=== PATIENT | male | born 1960 | race African-American/Black ===

== ENCOUNTER 2019-02-26 15:37 | Emergency (ER) | payer OTHER ==
--- NOTE | 2019-02-26 19:55 | ER Document Report ---
ED General - General Chief Complaint: Headache Stated Complaint: HEADACHE Time Seen by Provider: 02/26/19 19:28 [facility] Care Provider: [facility] [[facility]] - Follow up as needed Mode of Arrival: Ambulatory Information source: Patient TRAVEL OUTSIDE OF THE [place] IN LAST 30 DAYS: No - HPI Patient complains to provider of: Ear pain, cough, right arm pain, right face pain, headaches Onset: Last week Onset/Duration: Persistent Severity: Severe Pain Level: 5 Associated symptoms: denies: Chills, Fever Exacerbated by: Denies Relieved by: Denies Similar symptoms previously: No Recently seen / treated by doctor: No Notes: 59-year-old obese -[place] male 2 diabetes, hypertension, hyperlipidemia here with chief complaint sent here from the [place]. He has multiple complaints. Primarily his left ear pain. He had a bad cough for about a week. He is right arm and shoulder pain worse with movement. He is got right sided facial pain. He is got frequent headaches. Denies fevers and chills. Denies nausea and vomiting. - Related Data Allergies/Adverse Reactions: No Known Allergies Allergy (Verified 02/26/19 16:14) Past Medical History - General Information source: Patient - Social History Smoking Status: Never Smoker Frequency of alcohol use: None Drug Abuse: None Family History: Reviewed & Not Pertinent Patient has suicidal ideation: No Patient has homicidal ideation: No - Past Medical History Cardiac Medical History: Reports: Hx Hypertension - Noted on last visit Endocrine Medical History: Reports: Hx Diabetes Mellitus Type 2 Renal/ Medical History: Denies: Hx Peritoneal Dialysis Musculoskeletal Medical History: Reports Hx Arthritis - bilateral knee - Immunizations Hx Diphtheria, Pertussis, Tetanus Vaccination: Yes Review of Systems - Review of Systems Notes: Constitutional: No fevers. No chills. EENT: No eye redness. No eye pain. +ear pain. +sore throat. + right jaw pain Cardiovascular: No chest pain. No palpitations. Respiratory: +cough. No shortness of breath. No respiratory distress. Gastrointestinal: No abdominal pain. No nausea, vomiting, or diarrhea. Genitourinary: Atraumatic. No lesions. No pain. No discharge. Musculoskeletal: Atraumatic. No swelling. No deformities. Skin: No rash or lesions. Lymphatic: No swollen lymph nodes. Neurologic: No headache. No syncope. Psychiatric: No suicidal or homicidal ideation. Physical Exam - Vital signs Vitals: Temp Pulse Resp BP Pulse Ox 98.1 F 88 16 165/94 H 97 02/26/19 15:41 02/26/19 15:41 02/26/19 15:41 02/26/19 15:41 02/26/19 15:41 - Notes Notes: General: Well-developed, well-nourished. In no acute distress. Non-toxic appearing. Cardiac: Well-perfused. Regular rate and rhythm. No murmurs, rubs, or gallops. Pulmonary: No respiratory distress. No cyanosis. Bilateral lung fiels are clear to auscultation. Abdominal: Non-distended. Non-rigid. Bowels sounds are present in all four quadrants. No guarding or rebound. HEENT: Head is atraumatic. Conjunctivae not reddened. No tearing. PERRL. EOMI. Orbits atraumatic. No periorbital swelling or erythema. Oropharynx is without erythema, swelling, or exudates. Bilateral cerumen impaction. Oral exam reveals no large cavities, no abscesses, teeth in generally good repair. There is no point tenderness over any of his teeth or gums. No malocclusion. No trismus. No drooling. No dysphonia dyspnea or dysphagia Neck: Supple. No adenopathy. No meningismus. Dermatologic: Warm with good turgor. No rash. Atraumatic. Chest: Atraumatic. No chest wall tenderness to palpation. Musculoskeletal: Right upper extremity is examined. There is tenderness with range of motion at the right shoulder. No swelling. No redness. Range of motion in the elbow wrist and hand is normal. Neurovascularly intact. no muscular or joint tenderness. No paraspinal muscle tenderness. no midline spinal tenderness or step-off. Genitourinary: Examination deferred Neurologic: No gross neurologic deficits. Psychiatric: Normal mood. Course - Re-evaluation Re-evalutation: 02/26/19 22:29 Patient's labs are reassuring. Chest x-ray, CT head, CT facial bones all negative. Patient exhibits exquisite tenderness to the right anterior shoulder that brings him to tears. Wanted to make sure the patient was not having an atypical chest presentation. The patient at no time has complained of chest pain. Baseline and delta troponins are negative. EKG is normal it is very much reproducible with movement. No signs or symptoms of a DVT in that arm. The headache and the cough I think is part of a viral syndrome. We will give some steroids and some pain medication here and put him in a sling to see if that will help with shoulder pain. I am going to have [facility] tomorrow 02/26/19 22:47 - Vital Signs Vital signs: Temp Pulse Resp BP Pulse Ox 98.1 F 88 16 165/94 H 97 02/26/19 15:41 02/26/19 15:41 02/26/19 15:41 02/26/19 15:41 02/26/19 15:41 - Laboratory Result Diagrams: 02/26/19 19:50 02/26/19 19:50 Laboratory results interpreted by me: 02/26/19 02/26/19 19:50 19:50 MCV 79 L MCH 26.7 L RDW 14.4 H Lymphocytes % 45.8 H Glucose 120 H AST 67 H - EKG Interpretation by Me EKG shows normal: Sinus rhythm, [place], Intervals, QRS Complexes, ST-T Waves Discharge - Discharge Clinical Impression: Right shoulder tendinitis, Viral syndrome Headache Qualifiers: Headache type: unspecified Headache chronicity pattern: acute headache Intr actability: not intractable Qualified Code(s): R51 - Headache Cerumen impaction Qualifiers: Laterality: bilateral Qualified Code(s): H61.23 - Impacted cerumen, bilateral Condition: Good Disposition: HOME, SELF-CARE Instructions: Headache ([facility]), Oral Narcotic Medication ([facility]), Pain Medication Injection ([facility]), Viral Syndrome ([facility]), Cerumen Impaction ([facility]), Tendonitis ([facility]) Additional Instructions: If at any time your pain gets significantly worse, or you develop chest pain, or you become short of breath, you need to call the ambulance immediately and return to the hospital. I would like for you to follow-up with your primary care doctor in the morning. Please sure to remove the sling a few times a day and move your arm and shoulder so that they do not become stiff. Medrol Dosepak is to help with the inflammation of the tendons in the shoulder. Percocet as needed for pain. I also gave you a referral to an orthopedic doctor if the shoulder pain continues to bother you. Prescriptions: Carbamide Peroxide [Debrox 6.5 % Otic Drops 15 ml] 10 drop OT Q6H #1 bottle Methylprednisolone [Medrol Dosepack (4 mg/Tab) 21 Tab/Dosepak] 4 mg PO ASDIR PRN #21 tab.ds.pk PRN Reason: Oxycodone HCl/Acetaminophen [Percocet 5-325 mg Tablet] 1 - 2 tab PO Q4H PRN #15 tablet PRN Reason: [facility]errals: [facility] [[facility]] - Follow up as needed EDDIE MAY MD [ACTIVE STAFF] - Follow up as needed
[2019-02-26 20:07] LABS: ABSOLUTE EOSINOPHILS # (AUTO) 0.4 10^3/uL (0.0-0.6); ABSOLUTE LYMPHOCYTES (AUTO) 3.7 10^3/uL (0.5-4.7); ABSOLUTE MONOCYTES (AUTO) 0.5 10^3/uL (0.1-1.4); ABSOLUTE NEUT (AUTO) 3.4 10^3/uL (1.7-8.2); BASOPHILS % (AUTO) 0.6 % (0-2); EOSINOPHILS % (AUTO) 4.8 % (0-6); HEMATOCRIT 40.4 % (37.9-51.0); HEMOGLOBIN 13.7 g/dL (13.5-17.0); LYMPHOCYTES % (AUTO) 45.8 % (13-45); MEAN CORPUSCULAR HEMOGLOBIN 26.7 pg (27.0-33.4); MEAN CORPUSCULAR VOLUME 79 fl (80-97); MONOCYTES % (AUTO) 6.8 % (3-13); PLATELET COUNT 174 10^3/uL (150-450); RED BLOOD COUNT 5.14 10^6/uL (4.35-5.55); RED CELL DISTRIBUTION WIDTH 14.4 % (11.5-14.0); TOTAL CELLS COUNTED % (AUTO) 100 %
[2019-02-26 20:13] LABS: APPEARANCE,URINE CLEAR; BILIRUBIN,URINE NEGATIVE (NEGATIVE); COLOR,URINE YELLOW; GLUCOSE, URINE NEGATIVE (NEGATIVE); KETONES,URINE NEGATIVE (NEGATIVE); LEUKOCYTE ESTERASE,URINE NEGATIVE (NEGATIVE); NITRITE,URINE NEGATIVE (NEGATIVE); PROTEIN,URINE NEGATIVE (NEGATIVE); URINE SPECIFIC GRAVITY 1.018; UROBILINOGEN,URINE NEGATIVE mg/dL (<2.0)
[2019-02-26 20:28] LABS: ALANINE AMINOTRANSFERASE 70 U/L (21-72); ALBUMIN 4.2 g/dL (3.5-5.0); ALKALINE PHOSPHATASE 71 U/L (38-126); ANION GAP 10 (5-19); ASPARTATE AMINO TRANSFERASE 67 U/L (17-59); BILIRUBIN,DIRECT 0.3 mg/dL (0.0-0.4); BILIRUBIN,TOTAL 0.5 mg/dL (0.2-1.3); BLOOD UREA NITROGEN 11 mg/dL (7-20); CALCIUM 9.5 mg/dL (8.4-10.2); CARBON DIOXIDE 28 mmol/L (22-30); CHLORIDE 104 mmol/L (98-107); GLUCOSE 120 mg/dL (75-110); POTASSIUM 4.3 mmol/L (3.6-5.0); SODIUM 141.9 mmol/L (137-145); TOTAL PROTEIN 7.7 g/dL (6.3-8.2)
--- NOTE | 2019-02-26 20:28 | RADIOLOGY REPORT (SQ) ---
EXAM DESCRIPTION: XR CHEST 1 VIEW COMPLETED DATE/TME: 02/26/2019 19:28 CLINICAL HISTORY: 59 years, Male, right arm pain Compared to 08/21/2015. FINDINGS: The heart is not enlarged. No consolidation or pleural effusion. No pulmonary edema or pneumothorax. IMPRESSION: No acute disease.
--- NOTE | 2019-02-26 20:29 | RADIOLOGY REPORT (SQ) ---
EXAM DESCRIPTION: XR SHOULDER 2 OR MORE VIEWS COMPLETED DATE/TME: 02/26/2019 19:31 CLINICAL HISTORY: 59 years, Male, right shoulder pain Findings: Bony alignment is anatomic. No fracture or dislocation. Moderate acromioclavicular degenerative changes. Soft tissues are unremarkable. IMPRESSION: No fracture.
[2019-02-26 20:40] LABS: A TYPE INFLUENZA AG NEGATIVE (NEGATIVE); B INFLUENZA AG NEGATIVE (NEGATIVE)
--- NOTE | 2019-02-26 21:02 | RADIOLOGY REPORT (SQ) ---
EXAM DESCRIPTION: CT HEAD WITHOUT IV CONTRAST COMPLETED DATE/TME: 02/26/2019 19:30 CLINICAL HISTORY: 59 years, Male, headaches COMPARISON: Prior study from 06/16/2016 TECHNIQUE: Noncontrast CT of the head was performed. Coronal and sagittal reformations were created. Images stored on PACS. All CT scanners at this facility use dose modulation, iterative reconstruction, and/or weight based dosing when appropriate to reduce radiation dose to as low as reasonably achievable (ALARA). [facility]: Dose Right [facility]: CareDose [facility]: Dose Right [facility]: Teradose 4D [facility]: [employer] LIMITATIONS: None. FINDINGS: Brain parenchyma is normal in attenuation. No acute intracranial hemorrhage, mass effect, or extra-axial fluid is seen. The ventricles, sulci, and basilar cisterns are normal in size and configuration. Globes and orbits are normal. Mild rounded opacities are noted about the left maxillary antrum, indicating mucous retention cysts or inflammatory polyps. Remaining paranasal sinuses and mastoid air cells are clear. There are no depressed skull fractures. IMPRESSION: No acute intracranial abnormality. TECHNICAL DOCUMENTATION: Quality ID # [id number]: Final reports with documentation of one or more dose reduction techniques (e.g., Automated exposure control, adjustment of the mA and/or kV according to patient size, use of iterative reconstruction technique) copyright 2011 [employer]- All Rights Reserved
--- NOTE | 2019-02-26 21:17 | RADIOLOGY REPORT (SQ) ---
EXAM DESCRIPTION: CT MAXILLOFACIAL WITH IV CONTRAST COMPLETED DATE/TME: 02/26/2019 19:32 CLINICAL HISTORY: 59 years, Male, right sided facial pain This exam was performed according to our departmental dose-optimization program which includes automated exposure control, adjustment of the mA and/or kVp according to patient size and/or use of iterative reconstruction technique where applicable. FINDINGS: Mandible is intact. Lateral medical arches are intact. Nasal bones are intact. Orbits are intact. Mild mucosal thickening in the left maxillary sinus. Soft tissues surrounding the sinuses are intact. Globes are intact and not proptotic. IMPRESSION: No evidence for fracture. Mild left maxillary sinus mucosal disease. No evidence for abscess in the facial tissues.
[2019-02-26] MEDS ORDERED: OXYCODONE-ACETAMINOPHEN 5-325 MG TABLET PO ONE (21:54)
[2019-02-26] MEDS ORDERED: HYDROMORPHONE HCL INJ/PF 2 MG/ML AMPULE IV ONE (22:25)
[2019-02-26] MEDS ORDERED: DEXAMETHASONE SOD PHOS INJ 10 MG/1 ML VIAL IV ONE (22:25)
[2019-02-26] MEDS ORDERED: ONDANSETRON HCL INJ/PF 4 MG/2 ML SDV IV ONE (22:27)
[2019-02-26 22:54] VITALS: BP 144/84
--- NOTE | 2019-02-27 07:37 | EKG REPORT ---
SEVERITY:- BORDERLINE ECG - SINUS RHYTHM BORDERLINE T ABNORMALITIES, INFERIOR LEADS : Confirmed by: Hamzah Bravo MD 27-Feb-2019 07:36:16
== END 2019-02-26 22:59 | disposition home or self-care (01) ==
LOC: ER 15:37
DX: R51 Headache (principal); B34.9 Viral infection, unspecified; H61.23 Impacted cerumen, bilateral; H92.09 Otalgia, unspecified ear; M75.91 Shoulder lesion, unspecified, right shoulder; R05 Cough; M79.601 Pain in right arm; E66.9 Obesity, unspecified; E11.9 Type 2 diabetes mellitus without complications; I10 Essential (primary) hypertension; E78.5 Hyperlipidemia, unspecified
CPT/HCPCS: 93005; 99284; 96374; 96375; 36415; 87070; 87880; 85025; 80053; 81001; 84484; 87804; 71045; 73030; 70450; 70487; 93010; J1170; J2405; J1100

== ENCOUNTER 2020-08-26 04:08 | Emergency (ER) | payer OTHER ==
[2020-08-26] MEDS ORDERED: ONDANSETRON HCL INJ/PF 4 MG/2 ML SDV IV ONE (05:14)
[2020-08-26] MEDS ORDERED: MORPHINE SULFATE 10 MG/ML INJ IV ONE (05:14)
--- NOTE | 2020-08-26 05:20 | ER Document Report ---
ED General - General TRAVEL OUTSIDE OF THE [place]. IN LAST 30 DAYS: No - HPI Associated symptoms: Other - See HPI Exacerbated by: Other - See HPI Relieved by: Other - See HPI <JAMIE FRANKS IV - Last Filed: 08/26/20 06:21> <CHAD MELENDEZ - Last Filed: 08/26/20 10:01> - General Chief Complaint: Headache Stated Complaint: HEADACHE BODY PAIN Time Seen by Provider: 08/26/20 05:03 [facility] Care Provider: [facility] [[facility]] - Follow up as needed - HPI Context: This is a 60-year-old male with a history of hypertension presenting to the emergency department complaining of headache, chest pain and basically "all over body pain" that has been going on for about an hour. Patient denies history of COVID-19 infection, known exposure to Covid positive patients, known exposure to patients under investigation for Covid. Patient denies loss of sense of taste or loss of sense of smell. Patient rates his pain as a 5 on a scale of 0-5 and describes it as all over aching pain. Patient denies fever, chills, shortness of breath, nausea, vomiting, diarrhea. Patient states activity worsens his symptoms and nothing alleviates his symptoms. (JAMIE FRANKS IV) - Related Data Allergies/Adverse Reactions: No Known Allergies Allergy (Verified 08/26/20 07:18) Past Medical History - General Information source: Patient - Social History Smoking Status: Unknown if Ever Smoked Family History: Reviewed & Not Pertinent - Past Medical History Cardiac Medical History: Reports: Hx Hypertension - Noted on last visit Endocrine Medical History: Reports: Hx Diabetes Mellitus Type 2 Renal/ Medical History: Denies: Hx Peritoneal Dialysis Musculoskeletal Medical History: Reports Hx Arthritis - bilateral knee - Immunizations Hx Diphtheria, Pertussis, Tetanus Vaccination: Yes <JAMIE FRANKS IV - Last Filed: 08/26/20 06:21> Review of Systems - Review of Systems Constitutional: No symptoms reported EENT: No symptoms reported Cardiovascular: Chest pain Respiratory: No symptoms reported Gastrointestinal: No symptoms reported Genitourinary: No symptoms reported Male Genitourinary: No symptoms reported Musculoskeletal: Muscle pain Skin: No symptoms reported Hematologic/Lymphatic: No symptoms reported Neurological/Psychological: Headaches -: Yes All other systems reviewed and negative <JAMIE FRANKS IV - Last Filed: 08/26/20 06:21> Physical Exam <JAMIE FRANKS IV - Last Filed: 08/26/20 06:21> - Vital signs Vitals: Temp Pulse Resp BP Pulse Ox 98.0 F 78 20 170/89 H 96 08/26/20 04:28 08/26/20 04:28 08/26/20 04:28 08/26/20 04:28 08/26/20 04:28 - Notes Notes: CONSTITUTIONAL [Vital signs reviewed, Patient appears comfortable, Alert and oriented X 3, Normal stature.] HEAD [Atraumatic, Normocephalic.] EYES [Eyes are normal to inspection, No discharge from eyes, Extraocular muscles intact, Sclera are normal, Conjunctiva are normal.] ENT Nose examination normal, Posterior pharynx normal, Mouth normal to inspection.] NECK [Normal ROM, No jugular venous distention, No meningeal signs, no carotid bruit.] RESPIRATORY CHEST [Chest is nontender, Breath sounds normal, No respiratory distress.] CARDIOVASCULAR [RRR, No murmurs, Normal S1 S2, No rub, No gallop.] ABDOMEN [Abdomen is nontender, No pulsatile masses, No other masses, Bowel sounds normal, No distension, No peritoneal signs, No hernias.] BACK [There is no CVA Tenderness, There is no tenderness to palpation, Normal inspection.] UPPER EXTREMITY [Inspection normal, No cyanosis, No clubbing, No edema, 2+ radial pulses.] LOWER EXTREMITY [Inspection normal, No cyanosis, No clubbing, No edema, No calf tenderness, 2+ femoral pulses.] NEURO [No focal motor deficits, No focal sensory deficits, Speech normal.] SKIN [Skin is warm, Skin is dry, Skin is normal color.] PSYCHIATRIC [Normal affect. ] (JAMIE FRANKS IV) Course - Laboratory Result Diagrams: 08/26/20 04:50 08/26/20 04:50 <JAMIE FRANKS IV - Last Filed: 08/26/20 06:21> - Laboratory Result Diagrams: 08/26/20 04:50 08/26/20 04:50 - Diagnostic Test Radiology reviewed: Reports reviewed <CHAD MELENDEZ - Last Filed: 08/26/20 10:01> - Re-evaluation Re-evalutation: 08/26/20 09:56 Care of this patient was turned over to me. In short he presented with pain all over, chest pain, headache. He had a CT scan of the head pending, chest x-ray pending, repeat troponin pending. These are all unremarkable. Patient has been stable. Patient will be discharged as per Dr. Franks' instructions. 08/26/20 10:00 I was notified by nursing that the patient was complaining of some right arm pain. I went into evaluate the patient. He hurts when he moves his arm. He has muscle tenderness. He is neurovascularly intact. He denies any other pain at this time. He is not no chest pain, no shortness of breath. He is strongly encouraged to follow-up with primary care. He states he is filling out paperwork [facility]. Otherwise he is stable. He is discharged with the paperwork as printed by Dr. Franks. (CHAD MELENDEZ) - Vital Signs Vital signs: Temp Pulse Resp BP Pulse Ox 97.9 F 78 14 151/89 H 97 08/26/20 08:15 08/26/20 04:28 08/26/20 09:01 08/26/20 09:01 08/26/20 09:01 - Laboratory Laboratory results interpreted by me: 08/26/20 08/26/20 04:50 04:50 Hgb 13.3 L MCV 78 L MCH 26.4 L RDW 14.6 H Lymph % (Auto) 48.2 H Glucose 185 H ALT 54 H - Diagnostic Test Radiology results interpreted by me: 08/26/20 09:57 Chest X-Ray 08/26/20 00:00 IMPRESSION: No acute findings visualized in the chest. Head CT 08/26/20 05:41 IMPRESSION: No acute intracranial abnormality. (CHAD MELENDEZ) - EKG Interpretation by Me Additional EKG results interpreted by me: 08/26/20 05:24 EKG obtained on 08/26 2020 at 0416 hrs. was interpreted by this MD. Findings: Normal sinus rhythm, rate 81, left axis deviation, RI interval is within normal limits, P waves proceed QRS complexes, QRS complexes appear narrow, QTC is 465, there are no obvious patterns of ST segment elevation, depression or reciprocal changes seen to suggest acute myocardial ischemia or infarction. Impression: Normal sinus rhythm with nonspecific ST segments. (JAMIE FRANKS IV) Discharge <JAMIE FRANKS IV - Last Filed: 08/26/20 06:21> <CHAD MELENDEZ M - Last Filed: 08/26/20 10:01> - Discharge Clinical Impression: Myalgia Chest pain Qualifiers: Chest pain type: unspecified Qualified Code(s): R07.9 - Chest pain, unspecified Headache Qualifiers: Headache type: unspecified Headache chronicity pattern: unspecified pattern In tractability: not intractable Qualified Code(s): R51.9 - Headache, unspecified Condition: Stable Disposition: HOME, SELF-CARE Additional Instructions: Return to the Emergency Department without delay if any worse. HOME CARE INSTRUCTIONS & INFORMATION: Thank you for choosing us for your medical needs. We hope you're satisfied with the care you received. After you leave, you must properly care for your problem and, at the same time, observe its progress. Any condition can change. Some illnesses can change rapidly over hours or days. If your condition worsens, return to the Emergency Department or see your physician promptly. ABOUT YOUR X-RAYS AND EKG'S: If you had an EKG or X-rays taken, they have been read by the Emergency Physician. The X-rays and EKG's will also be read by a Radiologist or Food Server within 24 hours. If discrepancies are noted, you will be notified by telephone. Please be certain the ED has a correct telephone number & address where you can be reached. Also, realize that some fractures or abnormalities do not show up on initial X-rays. If your symptoms continue, see your physician. ABOUT YOUR LABORATORY TEST: If you had laboratory tests, the results have been reviewed by the Emergency Physician. Some test results (for example cultures) may not be available for several days. You will be contacted if any test result shows you need additional treatment. Please be certain the ED has a correct telephone number and address where you can be reached. ABOUT YOUR MEDICATIONS: You will receive instructions on how to take your me dicine on the prescription label you receive. Additional information may be provided by the Pharmacy. If you have questions afterwards, call the ED for clarification or further instructions. Some prescribed medications may cause drowsiness. Do not perform tasks such as driving a car or operating machinery without consulting your Pharmacist. If you feel you need a refill of pain medication, your condition will need re-evaluation. Please do not call for a refill of any medication. ABOUT YOUR SIGNATURE: Signature of this document acknowledges to followin. Understanding that you received emergency treatment and that you may be released before al medical problems are known or treated. Please be certain the ED has a correct phone number & address where you can be reached. 2. Acknowledgement that you will arrange for follow-up care as recommended. 3. Authorization for the Emergency Physician to provide information to your follow-up Physician in order to maximize your care. AT ANY TIME, IF YOUR SYMPTOMS CHANGE SIGNIFICANTLY OR WORSEN OR YOU DEVELOP NEW SYMPTOMS, RETURN TO THE EMERGENCY DEPARTMENT IMMEDIATELY FOR RE-EVALUATION. OUR GOAL IS TO PROVIDE EXCELLENT MEDICAL CARE! WE HOPE THAT WE HAVE MET YOUR EXPECTATIONS DURING YOUR EMERGENCY DEPARTMENT VISIT AND THAT YOU FEEL YOU HAVE RECEIVED EXCELLENT CARE! Referrals: [facility] [[facility]] - Follow up as needed
[2020-08-26 05:29] LABS: ABSOLUTE EOSINOPHILS # (AUTO) 0.2 10^3/uL (0.0-0.6); ABSOLUTE LYMPHOCYTES (AUTO) 2.9 10^3/uL (0.5-4.7); ABSOLUTE MONOCYTES (AUTO) 0.4 10^3/uL (0.1-1.4); ABSOLUTE NEUT (AUTO) 2.5 10^3/uL (1.7-8.2); BASOPHILS % (AUTO) 0.3 % (0-2); EOSINOPHILS % (AUTO) 2.7 % (0-6); HEMATOCRIT 39.4 % (37.9-51.0); HEMOGLOBIN 13.3 g/dL (13.5-17.0); LYMPHOCYTES % (AUTO) 48.2 % (13-45); MEAN CORPUSCULAR HEMOGLOBIN 26.4 pg (27.0-33.4); MEAN CORPUSCULAR HGB CONC 33.8 g/dL (32.0-36.0); MEAN CORPUSCULAR VOLUME 78 fl (80-97); MONOCYTES % (AUTO) 6.4 % (3-13); PLATELET COUNT 153 10^3/uL (150-450); RED BLOOD COUNT 5.06 10^6/uL (4.35-5.55); RED CELL DISTRIBUTION WIDTH 14.6 % (11.5-14.0); SEGMENTED NEUTROPHILS % (AUTO) 42.4 % (42-78); TOTAL CELLS COUNTED % (AUTO) 100 %
[2020-08-26 05:33] LABS: ALBUMIN 4.5 g/dL (3.5-5.0); ALKALINE PHOSPHATASE 74 U/L (38-126); ANION GAP 10 (5-19); ASPARTATE AMINO TRANSFERASE 45 U/L (17-59); BILIRUBIN,DIRECT 0.2 mg/dL (0.0-0.4); BILIRUBIN,TOTAL 0.6 mg/dL (0.2-1.3); BLOOD UREA NITROGEN 10 mg/dL (7-20); CALCIUM 9.7 mg/dL (8.4-10.2); CARBON DIOXIDE 30 mmol/L (22-30); CHLORIDE 100 mmol/L (98-107); CREATINE KINASE 128 U/L (55-170); GLUCOSE 185 mg/dL (75-110); POTASSIUM 4.2 mmol/L (3.6-5.0); TOTAL PROTEIN 7.4 g/dL (6.3-8.2)
[2020-08-26 05:42] LABS: APPEARANCE,URINE CLEAR; BILIRUBIN,URINE NEGATIVE (NEGATIVE); COLOR,URINE YELLOW; GLUCOSE, URINE NEGATIVE (NEGATIVE); KETONES,URINE NEGATIVE (NEGATIVE); LEUKOCYTE ESTERASE,URINE NEGATIVE (NEGATIVE); NITRITE,URINE NEGATIVE (NEGATIVE); PROTEIN,URINE NEGATIVE (NEGATIVE); URINE SPECIFIC GRAVITY 1.018; UROBILINOGEN,URINE NEGATIVE mg/dL (<2.0)
[2020-08-26 05:44] LABS: CREATINE KINASE MB 0.51 ng/mL (<4.55)
[2020-08-26 05:49] LABS: TROPONIN I < 0.012 ng/mL
--- NOTE | 2020-08-26 06:57 | RADIOLOGY REPORT (SQ) ---
COMPLETED DATE/TME: 08/26/2020 05:41 EXAM: CT head without contrast. INDICATION: Headache. TECHNIQUE: Contiguous axial CT images of the brain. Intravenous contrast: Absent. DLP 1017 mGy-cm. This exam was performed according to our departmental dose-optimization program, which includes automated exposure control, adjustment of the mA and/or kV according to patient size and/or use of iterative reconstruction technique. COMPARISON: 02/26/2019. FINDINGS: Subcutaneous: Unremarkable. No acute intracranial hemorrhage. No midline shift. No mass effect. Ventricles: No hydrocephalus. [place]-white differentiation preserved. Paranasal sinuses/mastoid air cells: Mucosal thickening with mucus retention cysts in the maxillary sinuses. No air-fluid levels. Bones/orbits: Visualized portions are unremarkable. IMPRESSION: No acute intracranial abnormality.
--- NOTE | 2020-08-26 07:05 | RADIOLOGY REPORT (SQ) ---
EXAM: XR Chest, 2 Views EXAM DATE/TIME: 08/26/2020 5:41 AM CLINICAL HISTORY: The patient is 60 years old and is Male; chest pain TECHNIQUE: Frontal and lateral views of the chest. COMPARISON: Chest radiograph from 02/26/2019 FINDINGS: LUNGS: Unremarkable. No consolidation. PLEURAL SPACE: Unremarkable. No pneumothorax. HEART: No significant enlargement of the cardiac silhouette. MEDIASTINUM: Unremarkable. BONES/JOINTS: No acute osseous findings. IMPRESSION: No acute findings visualized in the chest.
[2020-08-26 10:05] VITALS: BP 158/84
== END 2020-08-26 10:05 | disposition home or self-care (01) ==
LOC: ER 04:08
DX: R51.9 Headache, unspecified (principal); M79.10 Myalgia, unspecified site; R07.9 Chest pain, unspecified; I10 Essential (primary) hypertension; E11.9 Type 2 diabetes mellitus without complications
CPT/HCPCS: 99285; 96374; 96375; 36415; 87086; 82553; 82550; 85025; 80053; 81001; 84484; 71046; 70450; J2270; J2405

== ENCOUNTER 2020-09-02 13:25 | Emergency (ER) | payer OTHER ==
[2020-09-02 14:37] LABS: ALBUMIN 3.8 g/dL (3.5-5.0); ALKALINE PHOSPHATASE 71 U/L (38-126); ANION GAP 8 (5-19); ASPARTATE AMINO TRANSFERASE 39 U/L (17-59); BILIRUBIN,DIRECT 0.2 mg/dL (0.0-0.4); BILIRUBIN,TOTAL 0.5 mg/dL (0.2-1.3); BLOOD UREA NITROGEN 10 mg/dL (7-20); CARBON DIOXIDE 27 mmol/L (22-30); CHLORIDE 103 mmol/L (98-107); GLUCOSE 249 mg/dL (75-110); TOTAL PROTEIN 6.4 g/dL (6.3-8.2)
[2020-09-02 14:38] LABS: ALCOHOL < 10 mg/dL (NONE DETECTED)
[2020-09-02 14:40] LABS: ABSOLUTE EOSINOPHILS # (AUTO) 0.1 10^3/uL (0.0-0.6); ABSOLUTE MONOCYTES (AUTO) 0.4 10^3/uL (0.1-1.4); ABSOLUTE NEUT (AUTO) 3.5 10^3/uL (1.7-8.2); BASOPHILS % (AUTO) 0.3 % (0-2); EOSINOPHILS % (AUTO) 1.6 % (0-6); HEMATOCRIT 43.1 % (37.9-51.0); HEMOGLOBIN 14.9 g/dL (13.5-17.0); LYMPHOCYTES % (AUTO) 42.5 % (13-45); MEAN CORPUSCULAR HEMOGLOBIN 27.1 pg (27.0-33.4); MEAN CORPUSCULAR HGB CONC 34.5 g/dL (32.0-36.0); MEAN CORPUSCULAR VOLUME 78 fl (80-97); MONOCYTES % (AUTO) 5.8 % (3-13); PLATELET COUNT 156 10^3/uL (150-450); RED CELL DISTRIBUTION WIDTH 14.6 % (11.5-14.0); SEGMENTED NEUTROPHILS % (AUTO) 49.8 % (42-78); TOTAL CELLS COUNTED % (AUTO) 100 %
--- NOTE | 2020-09-02 14:44 | RADIOLOGY REPORT (SQ) ---
EXAM DESCRIPTION: CHEST SINGLE VIEW IMAGES COMPLETED DATE/TIME: 09/02/2020 2:34 pm REASON FOR STUDY: AMS COMPARISON: 08/26/2020 EXAM PARAMETERS: NUMBER OF VIEWS: One view. TECHNIQUE: Single frontal radiographic view of the chest acquired. RADIATION DOSE: NA LIMITATIONS: None. FINDINGS: LUNGS AND PLEURA: No opacities, masses or pneumothorax. No pleural effusion. MEDIASTINUM AND HILAR STRUCTURES: No masses. Contour normal. HEART AND VASCULAR STRUCTURES: Heart normal in size. Normal vasculature. BONES: No acute findings. HARDWARE: None in the chest. OTHER: No other significant finding. IMPRESSION: NO ACUTE RADIOGRAPHIC FINDING IN THE CHEST. TECHNICAL DOCUMENTATION: JOB ID: [id number] 2010 [employer]- All Rights Reserved Reading location - IP/workstation name: [email or web address]
--- NOTE | 2020-09-02 15:24 | ER Document Report ---
ED General - General Chief Complaint: Altered Mental Status Stated Complaint: SYNCOPE Time Seen by Provider: 09/02/20 13:50 Primary Care Provider: MELISSA MEJIAS [Primary Care Provider] - Follow up as needed TRAVEL OUTSIDE OF THE [place] IN LAST 30 DAYS: No - HPI Notes: Chief complaint: Syncope and altered mental status History of present illness: 60-year-old male followed by the CT taking no long- term medications was seen here about 1 week ago with some vague complaints of headache and myalgias and felt to probably have a viral syndrome at that time and discharged in emergency department. His work-up during that visit was relatively extensive including a head CT CBC and chemistry profile. He was noted to have mild elevation of serum glucose although at that time this was a ttributed to probable stress hyperglycemia. He is not known to be diabetic. He was apparently in a local store several hours ago when he said he suddenly felt like he was having difficulty breathing. He sat down and according to bystanders became unresponsive. There is no clear-cut description of tonic- clonic activity but he was difficult to arouse for a number of minutes and when EMS arrived he was moderately confused. This is gradually improved since then he is back to baseline status now with no very specific complaints at this time. Patient is a non-smoker. She denies use of drugs or alcohol. 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 - Related Data Allergies/Adverse Reactions: No Known Allergies Allergy (Verified 08/26/20 07:18) Past Medical History - General Information source: Patient - Social History Smoking Status: Never Smoker Frequency of alcohol use: None Drug Abuse: None Family History: Reviewed & Not Pertinent - Past Medical History Cardiac Medical History: Reports: Hx Hypertension - Noted on last visit Endocrine Medical History: Reports: Hx Diabetes Mellitus Type 2 Renal/ Medical History: Denies: Hx Peritoneal Dialysis Musculoskeletal Medical History: Reports Hx Arthritis - bilateral knee - Immunizations Hx Diphtheria, Pertussis, Tetanus Vaccination: Yes Review of Systems - Review of Systems Notes: Constitutional: Negative for fever. HENT: Negative for sore throat. Eyes: Negative for visual changes. Cardiovascular: Negative for chest pain. Respiratory: As per HPI. Gastrointestinal: Negative for abdominal pain, vomiting or diarrhea. Genitourinary: Negative for dysuria. Musculoskeletal: Negative for back pain. Skin: Negative for rash. Neurological: As per HPI. 10 point ROS negative except as marked above and in HPI. Physical Exam - Vital signs Vitals: BP 134/93 H 09/02/20 10:25 - Notes Notes: GENERAL: Obese male approximately stated age appearing in no acute distress. SKIN: Good turgor no rashes. HEAD: Normocephalic atraumatic. EYES: PERRLA. EOMI. Conjunctivae and sclerae clear. EARS: CANALS AND TMS CLEAR. NOSE: CLEAR. MOUTH: Moist mucosa. Good dentition. No stridor or edema. No drooling. NECK: Supple. No masses or thyromegaly. No adenopathy. Carotids 2+ without bruits. No JVD. BACK: Symmetrical without tenderness. CHEST: Respirations unlabored. Breath sounds clear and symmetrical. HEART: Regular rhythm. No murmur gallop or rub. ABDOMEN: Obese soft nontender without masses, organomegaly or rebound. Bowel sounds normally active. No bruits. GENITALIA: Deferred. EXTREMITIES: No edema. No calf tenderness. Cap refill less than 1.5 seconds. Dorsalis pedis and posterior tibial pulses 3+ and symmetrical. NEUROLOGICAL: GCS 15. Alert and oriented x3. Fluent speech. Cranial nerves II through XII intact. Sensorimotor and cerebellar normal. Normal tone. PSYCHIATRIC: Appropriate affect. Course - Re-evaluation Re-evalutation: 09/02/20 18:05 Patient has diabetes mellitus type 2 that is not well controlled. He is not in DKA. He has some sort of an unexplained syncopal episode and transient altered mental status this afternoon. My suspicion is that he may have had a seizure. He has had a recent normal noncontrast head CT. From his elevation of blood sugars labs were otherwise unremarkable here. There were no significant dysrhythmias on his EKG no acute ST changes. D-dimer was normal. His lactate was not elevated. Arterial blood gas was normal. Chest x-ray was normal. I think this man needs further outpatient work-up by neurologist and I will make an appropriate referral for him. I discussed this with him and his . He understands importance of not driving until he has been further evaluated by neurologist. Findings, clinical impression and plan of treatment have been discussed with patient/family. Understanding of current findings and recommendations has been acknowledged by them and there is agreement regarding disposition and follow-up. - Vital Signs Vital signs: Temp Pulse Resp BP Pulse Ox 18 133/76 H 98 09/02/20 17:01 09/02/20 17:01 09/02/20 17:01 - Laboratory Result Diagrams: 09/02/20 13:42 09/02/20 13:42 Laboratory results interpreted by me: 09/02/20 09/02/20 09/02/20 13:42 13:42 14:16 MCV 78 L RDW 14.6 H ABG HCO3 ABG Total CO2 Glucose 249 H Ammonia < 8.7 L Urine Glucose (UA) 09/02/20 09/02/20 15:29 16:35 MCV RDW ABG HCO3 26.9 H ABG Total CO2 28.2 H Glucose Ammonia Urine Glucose (UA) >=500 H - EKG Interpretation by Me Additional EKG results interpreted by me: 09/02/20 18:15 Twelve-lead EKG reviewed by me contemporaneously: 1333 hrs. Indication for study: Syncope Rhythm: Normal sinus Rate: 94 Intervals: Normal QRS axis: [address]/T wave changes: None Comparison with prior tracing: None provided Interpretation: Borderline left axis deviation Discharge - Discharge Clinical Impression: Transient altered mental status, Diabetes mellitus type 2 in obese Syncope Qualifiers: Syncope type: unspecified Qualified Code(s): R55 - Syncope and collapse Condition: Stable Disposition: HOME, SELF-CARE Additional Instructions: You have had an unexplained fainting episode possibly due to a seizure. It is important that you not drive a car and not return to work until you have been further evaluated by neurology specialist. We will provide a physician/clinic referral for you. You are also receiving a doctor's note for work for the next 3 days. Additionally we note that your diabetes is not well controlled. [facility] your [facility]. Return here as needed for new or worsening symptoms: Pain that is worsening or unimproved Uncontrolled vomiting High fever or shaking chills Overall worsening Referrals: [facility] [Primary Care Provider] - Follow up as needed GABRIELLE PERSAUD MD [TELEMEDICINE] - Follow up as needed
[2020-09-02 16:14] LABS: APPEARANCE,URINE CLEAR; BILIRUBIN,URINE NEGATIVE (NEGATIVE); COLOR,URINE YELLOW; GLUCOSE, URINE >=500 mg/dL (NEGATIVE); KETONES,URINE NEGATIVE (NEGATIVE); LEUKOCYTE ESTERASE,URINE NEGATIVE (NEGATIVE); NITRITE,URINE NEGATIVE (NEGATIVE); PROTEIN,URINE NEGATIVE (NEGATIVE); URINE SPECIFIC GRAVITY 1.007; UROBILINOGEN,URINE NEGATIVE mg/dL (<2.0)
[2020-09-02 16:22] LABS: URINE AMPHETAMINES SCREEN NEGATIVE; URINE BARBITURATES SCREEN NEGATIVE; URINE BENZODIAZEPINES SCREEN NEGATIVE; URINE COCAINE SCREEN NEGATIVE; URINE MARIJUANA (THC) SCREEN NEGATIVE; URINE METHADONE SCREEN NEGATIVE; URINE PHENCYCLIDINE SCREEN NEGATIVE
[2020-09-02 17:36] LABS: ARTERIAL BLOOD H2CO3 1.29 mmol/L (1.05-1.35); ARTERIAL BLOOD HCO3 26.9 mmol/L (20-24); ARTERIAL BLOOD O2 SATURATION 96.8 % (94-98); ARTERIAL BLOOD PCO2 42.9 mmHg (35-45); ARTERIAL BLOOD PH 7.42 (7.35-7.45); ARTERIAL BLOOD PO2 88.2 mmHg (80-100); ARTERIAL BLOOD TOTAL CO2 28.2 mmol/L (23-27)
[2020-09-02 17:37] LABS: ARTERIAL BLOOD FIO2 21%
--- NOTE | 2020-09-02 18:07 | EKG REPORT ---
SEVERITY:- OTHERWISE NORMAL ECG - SINUS RHYTHM BORDERLINE LEFT AXIS DEVIATION : Confirmed by: Hamzah Bravo MD 02-Sep-2020 18:06:33
[2020-09-02 18:44] VITALS: BP 147/96
== END 2020-09-02 18:30 | disposition home or self-care (01) ==
LOC: ER 13:25
DX: R55 Syncope and collapse (principal); E11.65 Type 2 diabetes mellitus with hyperglycemia; R41.0 Disorientation, unspecified; E66.9 Obesity, unspecified; I10 Essential (primary) hypertension
CPT/HCPCS: 36415; 71045; 80053; 80307; 81001; 82140; 82803; 83605; 84484; 85025; 85379; 93005; 93010; 99285

== ENCOUNTER 2020-10-29 12:54 | Emergency (ER) | payer OTHER ==
[2020-10-29 14:31] LABS: ABSOLUTE BASOPHILS # (AUTO) 0.1 10^3/uL (0.0-0.2); ABSOLUTE EOSINOPHILS # (AUTO) 0.1 10^3/uL (0.0-0.6); ABSOLUTE LYMPHOCYTES (AUTO) 2.6 10^3/uL (0.5-4.7); ABSOLUTE MONOCYTES (AUTO) 0.5 10^3/uL (0.1-1.4); ABSOLUTE NEUT (AUTO) 4.9 10^3/uL (1.7-8.2); BASOPHILS % (AUTO) 1.1 % (0-2); EOSINOPHILS % (AUTO) 1.3 % (0-6); HEMATOCRIT 46.8 % (37.9-51.0); HEMOGLOBIN 15.3 g/dL (13.5-17.0); LYMPHOCYTES % (AUTO) 32.1 % (13-45); MEAN CORPUSCULAR HEMOGLOBIN 26.2 pg (27.0-33.4); MEAN CORPUSCULAR HGB CONC 32.6 g/dL (32.0-36.0); MEAN CORPUSCULAR VOLUME 80 fl (80-97); PLATELET COUNT 173 10^3/uL (150-450); RED BLOOD COUNT 5.85 10^6/uL (4.35-5.55); RED CELL DISTRIBUTION WIDTH 14.8 % (11.5-14.0); SEGMENTED NEUTROPHILS % (AUTO) 59.5 % (42-78); TOTAL CELLS COUNTED % (AUTO) 100 %; WHITE BLOOD COUNT 8.2 10^3/uL (4.0-10.5)
[2020-10-29 14:52] LABS: APPEARANCE,URINE CLEAR; BILIRUBIN,URINE NEGATIVE (NEGATIVE); COLOR,URINE YELLOW; GLUCOSE, URINE >=500 mg/dL (NEGATIVE); KETONES,URINE NEGATIVE (NEGATIVE); LEUKOCYTE ESTERASE,URINE NEGATIVE (NEGATIVE); NITRITE,URINE NEGATIVE (NEGATIVE); PROTEIN,URINE NEGATIVE (NEGATIVE); URINE SPECIFIC GRAVITY 1.009; UROBILINOGEN,URINE NEGATIVE mg/dL (<2.0)
[2020-10-29 16:07] LABS: ALBUMIN 3.9 g/dL (3.5-5.0); ALKALINE PHOSPHATASE 56 U/L (38-126); ANION GAP 8 (5-19); ASPARTATE AMINO TRANSFERASE 49 U/L (17-59); BILIRUBIN,DIRECT 0.2 mg/dL (0.0-0.4); BILIRUBIN,TOTAL 0.7 mg/dL (0.2-1.3); BLOOD UREA NITROGEN 9 mg/dL (7-20); CALCIUM 9.1 mg/dL (8.4-10.2); CARBON DIOXIDE 27 mmol/L (22-30); CHLORIDE 99 mmol/L (98-107); CREATINE KINASE 104 U/L (55-170); GLUCOSE 272 mg/dL (75-110); POTASSIUM 4.6 mmol/L (3.6-5.0); TOTAL PROTEIN 6.8 g/dL (6.3-8.2)
[2020-10-29 16:25] LABS: CREATINE KINASE MB 0.27 ng/mL (<4.55)
--- NOTE | 2020-10-29 16:25 | ER Document Report ---
ED Syncope and Near Syncope - General Chief Complaint: Syncope Stated Complaint: POSSIBLE SYNCOPE EPISODE Time Seen by Provider: 10/29/20 15:08 Primary Care Provider: ROSA KITCHEN MD [Primary Care Provider] - Follow up as needed Mode of Arrival: Medic Information source: Patient Notes: 60-year-old diabetic male who presents to the emergency department with a histor y of became poorly responsive this morning. He states that he thinks that the episode lasted about 10 minutes. He was given orange juice by his and did come around. He also complained of some chest discomfort/pain. Cardiac cath was performed 2 months ago with no significant CAD. Continues to have a substernal chest pain that he rates a 7/10. He denies radiation of the pain or associated palpitations or shortness of breath. TRAVEL OUTSIDE OF THE [place] IN LAST 30 DAYS: No - Related Data Allergies/Adverse Reactions: No Known Allergies Allergy (Verified 08/26/20 07:18) Home Medications: Glipizide, Ibuprofen, Acetaminophen, Pioglitazone, Metformin, Losartan, HCTZ, Tramadol, Atorvastatin, Omperazole, Trazodone, Sertraline Past Medical History - Social History Smoking Status: Never Smoker Frequency of alcohol use: None Drug Abuse: None Family History: Reviewed & Not Pertinent - Past Medical History Cardiac Medical History: Reports: Hx Hypercholesterolemia, Hx Hypertension - Noted on last visit Endocrine Medical History: Reports: Hx Diabetes Mellitus Type 2 Renal/ Medical History: Denies: Hx Peritoneal Dialysis Musculoskeletal Medical History: Reports Hx Arthritis - bilateral knee - Immunizations Hx Diphtheria, Pertussis, Tetanus Vaccination: Yes Review of Systems - Review of Systems Notes: Constitutional: Negative for fever. HENT: Negative for sore throat. Eyes: Negative for visual changes. Cardiovascular: + Chest pain Respiratory: Negative for shortness of breath. Gastrointestinal: Negative for abdominal pain, vomiting or diarrhea. Genitourinary: Negative for dysuria. Musculoskeletal: Negative for back pain. Skin: Negative for rash. Neurological: The HPI 10 point ROS negative except as marked above and in HPI. Physical Exam - Vital signs Vitals: Temp Pulse Resp BP Pulse Ox 97.3 F 101 H 16 118/71 97 10/29/20 13:12 10/29/20 13:12 10/29/20 13:12 10/29/20 13:12 10/29/20 13:12 - Notes Notes: PHYSICAL EXAMINATION: Physical Exam: General: Well-nourished well-developed 60-year-old man in no acute distress HEENT: NC/AT, pupils equal round and reactive to light, MM moist,nares clear, oropharynx clear, airway patent Neck: supple, no adenopathy, no masses. Good range of motion Lungs: clear, no wheezing, no rales no rhonchi CVS: Regular rate and rhythm no murmur gallop or rub Abdomen: Soft, active, nontender, no masses, no hepatosplenomegaly Ext: No edema, clubbing or cyanosis. Neuro: Alert and responsive, moving all 4 extremities on command, cranial nerves intact, no focal findings Skin: Intact no open lesions, no rash Course - Re-evaluation Re-evalutation: 10/29/20 19:08 Patient has feeling much better and labs or unremarkable for significant abnormality. Blood sugar is somewhat elevated however he drank a large quantity of orange juice prior to coming into the emergency department. EKG does not show any interval changes from his previous EKG in August and initial troponin is negative. I have explained to the patient that his episode may have been hypoglycemia however, is not possible to figure it out based on where things are at this point. He is being discharged home to follow-up as an outpatient. I have asked him to see his primary care doctor regarding his blood sugar and also possible adjustments in his medication. Patient and his are in agreement with that plan. - Vital Signs Vital signs: Temp Pulse Resp BP Pulse Ox 98.1 F 101 H 20 122/74 97 10/29/20 19:00 10/29/20 13:12 10/29/20 19:00 10/29/20 19:00 10/29/20 19:00 - Laboratory Results Result Diagrams: 10/29/20 13:15 10/29/20 15:21 Laboratory Results Interpreted: 10/29/20 10/29/20 10/29/20 13:15 13:15 15:21 RBC 5.85 H MCH 26.2 L RDW 14.8 H Sodium 134.2 L Glucose 272 H Urine Glucose (UA) >=500 H 10/29/20 16:24 I have reviewed laboratory data and used this information for the treatment decisions regarding the patient. Critical Laboratory Results Reviewed: No Critical Results - Radiology Results Critical Radiology Results Reviewed: No Critical Results - EKG Interpretation by Me Rate: Normal - EKG interpreted by Dr. Hawthorne: Normal sinus rhythm, rate 89, DC interval 172 ms QT interval 434 ms, normal axis, T wave inversion in III, no ischemic findings, compared to EKG dated 09/02/20, no significant interval patricio ges.. Interpretation: Abnormal EKG Discharge - Discharge Clinical Impression: Syncope Qualifiers: Syncope type: unspecified Qualified Code(s): R55 - Syncope and collapse Diabetes mellitus Qualifiers: Diabetes mellitus type: type 2 Diabetes mellitus terminal gauger supervisor insulin use: without intermediate use Diabetes mellitus complication status: without complication Qualified Code(s): E11.9 - Type 2 diabetes mellitus without complications Condition: Good Disposition: HOME, SELF-CARE Instructions: Near Syncopal Episode ([facility]) Additional Instructions: You were seen in the emergency department today with an episode of decreased responsiveness which sounds like possible low blood sugar episode. Please eat when you take your medication because it will sometimes cause the blood sugar to drop. The episode you had today sounds similar to the episode in August. Please contact your primary care doctor and give him a background of the 2 episodes. There may be reasons to adjust your medication. If your symptoms are recurrent or if you have other concerns you may return to the emergency department for further evaluation and treatment HOME CARE INSTRUCTIONS & INFORMATION: Thank you for choosing us for your medical needs. We hope you're satisfied with the care you received. After you leave, you must properly care for your problem and, at the same time, observe its progress. Any condition can change. Some illnesses can change rapidly over hours or days. If your condition worsens, return to the Emergency Department or see your physician promptly. ABOUT YOUR X-RAYS AND EKG'S: If you had an EKG or X-rays taken, they have been read by the Emergency Physician. The X-rays and EKG's will also be read by a Radiologist or Eligibility Specialist within 24 hours. If discrepancies are noted, you will be notified by telephone. Please be certain the ED has a correct telephone number & address where you can be reached. Also, realize that some fractures or abnormalities do not show up on initial X-rays. If your symptoms continue, see your physician. ABOUT YOUR LABORATORY TEST: If you had laboratory tests, the results have been reviewed by the Emergency Physician. Some test results (for example cultures) may not be available for several days. You will be contacted if any test result shows you need additional treatment. Please be certain the ED has a correct telephone number and address where you can be reached. ABOUT YOUR MEDICATIONS: You will receive instructions on how to take your medicine on the prescription label you receive. Additional information may be provided by the Pharmacy. If you have questions afterwards, call the ED for clarification or further instructions. Some prescribed medications may cause drowsiness. Do not perform tasks such as driving a car or operating machinery without consulting your Pharmacist. If you feel you need a refill of pain medication, your condition will need re-evaluation. Please do not call for a refill of any medication. ABOUT YOUR SIGNATURE: Signature of this document acknowledges to followin. Understanding that you received emergency treatment and that you may be released before al medical problems are known or treated. Please be certain the ED has a correct phone number & address where you can be reached. 2. Acknowledgement that you will arrange for follow-up care as recommended. 3. Authorization for the Emergency Physician to provide information to your follow-up Physician in order to maximize your care. AT ANY TIME, IF YOUR SYMPTOMS CHANGE SIGNIFICANTLY OR WORSEN OR YOU DEVELOP NEW SYMPTOMS, RETURN TO THE EMERGENCY DEPARTMENT IMMEDIATELY FOR RE-EVALUATION. OUR GOAL IS TO PROVIDE EXCELLENT MEDICAL CARE! WE HOPE THAT WE HAVE MET YOUR EXPECTATIONS DURING YOUR EMERGENCY DEPARTMENT VISIT AND THAT YOU FEEL YOU HAVE RECEIVED EXCELLENT CARE! Referrals: ROSA KITCHEN MD [Primary Care Provider] - Follow up as needed
[2020-10-29 16:28] LABS: TROPONIN I < 0.012 ng/mL
[2020-10-29 20:06] VITALS: BP 122/74
--- NOTE | 2020-10-29 22:04 | EKG REPORT ---
SEVERITY:- BORDERLINE ECG - SINUS RHYTHM BORDERLINE LEFT AXIS DEVIATION BORDERLINE T ABNORMALITIES, INFERIOR LEADS : Confirmed by: Hamzah Bravo MD 29-Oct-2020 22:04:11
== END 2020-10-29 19:35 | disposition home or self-care (01) ==
LOC: ER 12:54
DX: R55 Syncope and collapse (principal); E11.9 Type 2 diabetes mellitus without complications; R07.9 Chest pain, unspecified; E78.00 Pure hypercholesterolemia, unspecified; I10 Essential (primary) hypertension; Z79.84 Long term (current) use of oral hypoglycemic drugs; Z79.1 Long term (current) use of non-steroidal anti-inflammatories (NSAID); Z79.899 Other long term (current) drug therapy
CPT/HCPCS: 36415; 80053; 81001; 82550; 82553; 84484; 85025; 93005; 93010; 99284